=== PATIENT | male | born 1975 ===

== ENCOUNTER 2016-12-23 15:03 | Emergency (ER) | payer OTHER ==
[2016-12-23 15:05] VITALS: BMI 33.0
[2016-12-23 15:08] VITALS: TEMP 98.5; O2SAT 99
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
[2016-12-23 17:15] VITALS: BP 139/85; PULSE 78; RESP 16
--- NOTE | 2016-12-23 18:30 | RAD ---
PROCEDURE: Radiographs of the Lumbar Spine. HISTORY: pain COMPARISON: None available. FINDINGS: BONES: Alignment appears grossly satisfactory. Approximately 4 mm retrolisthesis of L5 on S1. No fracture. Degenerative changes including small anterior osteophyte formation. DISC SPACES: Intervertebral disc space narrowing and vacuum disc phenomenon at L5-S1. OTHER FINDINGS: None. IMPRESSION: No acute displaced fracture identified. Approximately 4 mm retrolisthesis of L5 on S1.
--- NOTE | 2016-12-23 18:33 | RAD ---
PROCEDURE: Cervical Spine Radiographs. HISTORY: Pain. COMPARISON: None available. FINDINGS: BONES: Alignment maintained. No acute displaced fracture identified. Superior most dens tip obscured ; visualized portions of the dens appear intact. DISC SPACES: Unremarkable. SOFT TISSUES: Limited visualization appears grossly unremarkable. OTHER FINDINGS: None. IMPRESSION: No acute displaced fracture or subluxation identified. Superior most dens tip obscured ; visualized portions of the dens appear intact. If indicated, CT cervical spine may be considered for further evaluation.
== END 2016-12-23 17:16 | disposition home or self-care (01) ==
LOC: ED 15:03
DX: M54.2 Cervicalgia (principal); M54.9 Dorsalgia, unspecified
CPT/HCPCS: 72050; 72110; 96372; 99285; J1885